=== PATIENT | female | born 1935 | race Caucasian/White ===

== ENCOUNTER 2021-08-12 11:49 | Emergency (ER) | payer OTHER ==
[~2021-08-12] VITALS: Ht 165.1 cm; Wt 74.8 kg
[2021-08-12 11:57] VITALS: BP 167/80
[2021-08-12] MEDS ORDERED: ONDANSETRON 4 MG/2 ML VIAL IVP ONE (12:30)
[2021-08-12] MEDS ORDERED: NACL 0.9% 500 ML IV ONE (12:30)
[2021-08-12 13:14] LABS: BASOPHILS # (AUTO) 0.1 K/uL (0.00-0.22); BASOPHILS % (AUTO) 0.7 % (0.0-2.0); EOSINOPHILS # (AUTO) 0.1 K/uL (0-0.4); EOSINOPHILS % (AUTO) 1.4 % (0.0-4.0); HEMATOCRIT 41.3 % (36-48); HEMOGLOBIN 13.9 g/dL (12.0-16.0); LYMPHOCYTES % (AUTO) 20.7 % (20.5-51.1); MEAN CORPUSCULAR HEMOGLOBIN 30 pg (27-31); MEAN CORPUSCULAR HGB CONC 34 g/dL (33-37); MONOCYTES # (AUTO) 0.6 K/uL (0.8-1.0); MONOCYTES % (AUTO) 6.3 % (1.7-9.3); NEUTROPHILS # (AUTO) 6.9 K/uL (1.8-7.7); NEUTROPHILS % (AUTO) 70.9 % (42.2-75.2); PLATELET COUNT (AUTO) 190 K/uL (140-450); RED BLOOD CELL COUNT(AUTO) 4.59 MIL/uL (4.20-5.40); RED CELL DISTRIBUTION WIDTH 12.9 % (11.6-13.7); WHITE BLOOD COUNT (AUTO) 9.7 K/uL (4.8-10.8)
[2021-08-12 13:34] LABS: ALBUMIN 3.5 g/dL (3.4-5.0); ANION GAP 9.9 (8-16); ASPARTATE AMINOTRANSFERASE 24 U/L (15-37); CARBON DIOXIDE 27.8 mmol/L (21-32); CHLORIDE 105 mmol/L (98-107); CREATININE 0.8 mg/dL (0.6-1.3); GLUCOSE 129 mg/dL (74-106); POTASSIUM 3.7 mmol/L (3.5-5.1); SODIUM SERUM 139 mmol/L (136-145); TOTAL BILIRUBIN 0.8 mg/dL (0.0-1.0); UREA NITROGEN, BLOOD 19 mg/dL (7-18)
[2021-08-12] MEDS ORDERED: ONDA8TAB87 PO (15:35)
[2021-08-12 15:53] VITALS: BP 124/50
== END 2021-08-12 15:53 | disposition home or self-care (01) ==
LOC: MED 11:49
DX: R42 Dizziness and giddiness (principal); Z20.822 Contact with and (suspected) exposure to COVID-19; R11.2 Nausea with vomiting, unspecified; I10 Essential (primary) hypertension; F03.90 Unspecified dementia, unspecified severity, without behavioral disturbance, psychotic disturbance, mood disturbance, and anxiety; Z85.028 Personal history of other malignant neoplasm of stomach
CPT/HCPCS: 36415; 70450; 71045; 80053; 81002; 83880; 84484; 85025; 85610; 85730; 87426; 93005; 96361; 96374; 99285; J2405; J7030